=== PATIENT | female | born 1975 | race Caucasian/White ===

== ENCOUNTER 2020-10-06 17:53 | Inpatient (IN) | payer OTHER, SELFPAY ==
[2020-10-06] MEDS ORDERED: Ondansetron PF 4 MG/2 ML Vial ONE ×2 (19:02→21:42)
[2020-10-06] MEDS ORDERED: Morphine 4 MG/ML VIAL ONE ×2 (19:02→21:00)
[2020-10-06] MEDS ORDERED: Bupivacaine PF 0.5% 30 ML VIAL ONE (20:43)
[2020-10-06] MEDS ORDERED: Betamet Acet/Betamet Na Ph 30 MG/5 ML VIAL ONE (20:43)
[2020-10-06] MEDS ORDERED: Bacitracin Zinc Ointment 30 gm TUBE ONE (20:43)
[2020-10-06] MEDS ORDERED: Lidocaine 2% PF 5 ML VIAL ONE ×2 (20:43→20:45)
[2020-10-06] MEDS ORDERED: Hetastarch 6% 500 ML 0 ML ONE ×2 (20:43→20:45)
[2020-10-06] MEDS ORDERED: Heparin 25,000 units/D5W 0 ML ONE (20:46)
[2020-10-06] MEDS ORDERED: Sodium Chloride 0.9% 10 ML ONE (20:50)
[2020-10-06] MEDS ORDERED: Fentanyl 250 MCG/5 ML VIAL ONE (21:39)
[2020-10-06] MEDS ORDERED: Succinylcholine 200 MG/10 ml SYRINGE FS ONE (21:42)
[2020-10-06] MEDS ORDERED: Dexamethasone 20 MG/5 ML VIAL ONE (21:42)
[2020-10-06] MEDS ORDERED: PROPOFOL 200 MG/20 ML VIAL ONE (21:42)
[2020-10-06] MEDS ORDERED: Rocuronium Bromide 10 MG/ML (10ML VIAL) ONE (21:42)
[2020-10-06] MEDS ORDERED: Lidocaine 1% PF 5 ML VIAL ONE (21:42)
[2020-10-06] MEDS ORDERED: SUGAMMADEX SODIUM 500 MG/5 ML VIAL ONE (22:03)
[2020-10-06] MEDS ORDERED: Promethazine HCl 25 MG/ML VIAL IM PRN ×2 (23:27→23:31)
[2020-10-06] MEDS ORDERED: Promethazine HCl 25 MG/ML VIAL SLOW IVP PRN (23:27)
[2020-10-06] MEDS ORDERED: Ondansetron HCl/PF 4 MG/2 ML Vial IVP PRN (23:27)
[2020-10-06] MEDS ORDERED: Ketorolac Tromethamine 30 MG/ML VIAL IVP PRN ×2 (23:27→23:37)
[2020-10-06] MEDS ORDERED: Morphine Sulfate 2 MG/ML SYRINGE SLOW IVP PRN (23:27)
[2020-10-06] MEDS ORDERED: Fentanyl 100 MCG/2 ML VIAL ONE ×2 (23:30→23:46)
[2020-10-06] MEDS ORDERED: Ondansetron PF 4 MG/2 ML Vial SLOW IVP PRN (23:31)
[2020-10-06] MEDS ORDERED: Bisacodyl 10 MG SUPP PR PRN (23:31)
[2020-10-06] MEDS ORDERED: Fentanyl 100 MCG/2 ML VIAL SLOW IVP PRN (23:31)
[2020-10-06] MEDS ORDERED: HYDROcodone/Acetaminophen 5/325 mg Tablet PO PRN (23:31)
[2020-10-06] MEDS ORDERED: traMADol HCl 50 MG TAB PO PRN (23:31)
[2020-10-06] MEDS ORDERED: Meperidine HCl/PF 25 MG/ML VIAL IM PRN (23:37)
[2020-10-06] MEDS ORDERED: Communication Order-Pharmacy FS SCH (23:45)
[2020-10-07] MEDS ORDERED: Fentanyl 100 MCG/2 ML VIAL ONE (00:04)
[2020-10-07] MEDS ORDERED: Ketorolac Tromethamine 30 MG/ML VIAL ONE (00:04)
[2020-10-07] MEDS: Ketorolac Tromethamine 30 MG/ML VIAL IVP SCH ×4 (00:58→18:16)
[2020-10-07] MEDS: Sodium Chloride 0.9% 1,000 ML IV SCH ×3 (00:58→18:49)
[2020-10-07 01:03] VITALS: BMI 21.6
[2020-10-07] MEDS: Morphine 4 MG/ML VIAL SLOW IVP PRN ×5 (02:04→20:35)
[2020-10-07] MEDS: Vancomycin 1 GM in Premix Bag 1 BAG IVPB SCH ×2 (02:08→15:58)
[2020-10-07 03:49] LABS: #Lymphocytes 0.6 thou/uL (1.20-3.40); #Monocytes 0.1 thou/uL (0.11-0.59); %Lymphocytes 6.3 % (21.0-51.0); %Monocytes 0.9 % (0.0-10.0); %Neutrophils 92.7 % (42.0-75.0); Hemoglobin 12.2 g/dL (12.0-16.0); Mean Corpuscular HGB CONC 33.7 g/dL (32.0-36.0); Mean Corpuscular Hemoglobin 30.3 pg (27.0-31.0); Mean Corpuscular Volume 89.8 fL (78.0-98.0); Mean Platelet Volume 7.2 fL (7.4-10.4); Platelet Count 204 thou/uL (130-400); RBC Distribution Width 12.2 % (11.5-14.5); Red Blood Cell (RBC) Count 4.05 mill/uL (4.20-5.40); White Blood Cell (WBC) Count 9.7 thou/uL (4.8-10.8)
[2020-10-07] MEDS: Aspirin 81 mg Enteric Coated Tablet PO SCH ×2 (08:30→20:28)
[2020-10-07] MEDS ORDERED: TETANUS AND DIPHTHERIA TOX/PF 0.5 ML DISP.SYRIN IM SCH (09:00)
[2020-10-07] MEDS ORDERED: clonazePAM 0.5 MG TAB PO SCH (11:00)
[2020-10-07] MEDS ORDERED: busPIRone HCl 10 MG TAB PO SCH (11:00)
[2020-10-07] MEDS: clonazePAM 0.5 MG TAB PO SCH (20:28)
[2020-10-07] MEDS: busPIRone HCl 10 MG TAB PO SCH (20:29)
[2020-10-08] MEDS: Ketorolac Tromethamine 30 MG/ML VIAL IVP SCH (00:27)
[2020-10-08] MEDS: Sodium Chloride 0.9% 1,000 ML IV SCH ×2 (02:36→14:49)
[2020-10-08] MEDS: Morphine 4 MG/ML VIAL SLOW IVP PRN ×3 (02:37→14:35)
[2020-10-08] MEDS: Vancomycin 1 GM in Premix Bag 1 BAG IVPB SCH ×2 (02:39→16:03)
[2020-10-08 03:51] LABS: #Lymphocytes 1.7 thou/uL (1.20-3.40); #Monocytes 0.7 thou/uL (0.11-0.59); #Neutrophils 9.4 thou/uL (1.40-6.50); %Basophils 0.1 % (0.0-1.0); %Lymphocytes 14.1 % (21.0-51.0); %Monocytes 5.6 % (0.0-10.0); %Neutrophils 80.1 % (42.0-75.0); Hemoglobin 10.3 g/dL (12.0-16.0); Mean Corpuscular HGB CONC 35.1 g/dL (32.0-36.0); Mean Corpuscular Hemoglobin 31.8 pg (27.0-31.0); Mean Corpuscular Volume 90.7 fL (78.0-98.0); Mean Platelet Volume 7.4 fL (7.4-10.4); Platelet Count 186 thou/uL (130-400); RBC Distribution Width 12.3 % (11.5-14.5); Red Blood Cell (RBC) Count 3.24 mill/uL (4.20-5.40); White Blood Cell (WBC) Count 11.7 thou/uL (4.8-10.8)
[2020-10-08] MEDS: clonazePAM 0.5 MG TAB PO SCH ×2 (09:17→21:43)
[2020-10-08] MEDS: busPIRone HCl 10 MG TAB PO SCH ×2 (09:18→21:44)
[2020-10-08] MEDS: Aspirin 81 mg Enteric Coated Tablet PO SCH ×2 (09:18→21:44)
[2020-10-08 15:07] LABS: Vancomycin, Trough 6.2 ug/mL
[2020-10-08 15:24] VITALS: TEMP 98.3
[2020-10-08] MEDS ORDERED: VANCOMYCIN 1.75 GM/350 ML BAG 1.75 GM in Premix Bag 1 BAG IVPB SCH (16:00)
[2020-10-08] MEDS ORDERED: Midazolam HCl 2 mg/2 ml Vial ONE (17:07)
[2020-10-08] MEDS ORDERED: Fentanyl 100 MCG/2 ML VIAL ONE ×2 (17:07→20:46)
[2020-10-08] MEDS ORDERED: Bupivacaine PF 0.5% 30 ML VIAL ONE (17:19)
[2020-10-08] MEDS ORDERED: Sodium Chloride 0.9% 30 ML ONE (17:19)
[2020-10-08] MEDS ORDERED: Bacitracin Zinc Ointment 30 gm TUBE ONE (17:19)
[2020-10-08] MEDS ORDERED: Ondansetron PF 4 MG/2 ML Vial ONE (18:43)
[2020-10-08] MEDS ORDERED: Lidocaine 1% PF 5 ML VIAL ONE (18:43)
[2020-10-08] MEDS ORDERED: PROPOFOL 200 MG/20 ML VIAL ONE (18:43)
[2020-10-08] MEDS ORDERED: Dexamethasone 20 MG/5 ML VIAL ONE (18:43)
[2020-10-08] MEDS ORDERED: Promethazine HCl 25 MG/ML VIAL SLOW IVP PRN (20:30)
[2020-10-08] MEDS ORDERED: Promethazine HCl 25 MG/ML VIAL IM PRN (20:30)
[2020-10-08] MEDS ORDERED: Ondansetron HCl/PF 4 MG/2 ML Vial IVP PRN (20:30)
[2020-10-08] MEDS ORDERED: Ketorolac Tromethamine 30 MG/ML VIAL ONE (21:01)
[2020-10-08 21:30] VITALS: BP 110/63
== END 2020-10-08 22:21 | disposition home or self-care (01) | DRG 572 ==
LOC: ERS 17:53 → SDC/OP 21:57 → IMCU/EMU 23:00 → SURG A 10-08 15:48
PROVIDERS: ADMIT Orthopaedic Surgery Hand Surgery; ATTEND Orthopaedic Surgery Hand Surgery
PROC: 0JBH0ZZ Excision of Left Lower Arm Subcutaneous Tissue and Fascia, Open Approach (ICD-10-PCS; principal; 2020-10-06)
PROC: 01Q40ZZ Repair Ulnar Nerve, Open Approach (ICD-10-PCS; 2020-10-06)
PROC: 0XJ Anatomical Regions, Upper Extremities, Inspection (ICD-10-PCS; 2020-10-06)
PROC: 0JBH0ZZ Excision of Left Lower Arm Subcutaneous Tissue and Fascia, Open Approach (ICD-10-PCS; 2020-10-08)
DX: S51.812A Laceration without foreign body of left forearm, initial encounter (principal); S44.02XA Injury of ulnar nerve at upper arm level, left arm, initial encounter; F32.9 Major depressive disorder, single episode, unspecified; F41.9 Anxiety disorder, unspecified; W31.9XXA Contact with unspecified machinery, initial encounter; Z85.820 Personal history of malignant melanoma of skin; Z79.899 Other long term (current) drug therapy
CPT/HCPCS: 36415; 80202; 85025; 96374; 96375; 96376; G0390; J0702; J1100; J1644; J1885; J2001; J2250; J2270; J2405; J2704; J3010; J3370; J3490; S0020

== ENCOUNTER 2020-10-09 14:54 | Emergency (ER) | payer SELFPAY ==
[2020-10-09] MEDS ORDERED: Ketorolac Tromethamine 30 MG/ML VIAL ONE (16:13)
[2020-10-09] MEDS ORDERED: Bacitracin Zinc Ointment 30 gm TUBE ONE (16:17)
[2020-10-09] MEDS ORDERED: Thrombin 5000 UNITS/5 ML VIAL ONE (16:17)
[2020-10-09] MEDS ORDERED: Bupivacaine PF 0.5% 30 ML VIAL ONE (16:17)
[2020-10-09] MEDS ORDERED: Sodium Chloride 0.9% 0 ML ONE (16:17)
== END 2020-10-09 16:30 | disposition home or self-care (01) ==
LOC: ERS 14:54
DX: G89.18 Other acute postprocedural pain (principal); M79.2 Neuralgia and neuritis, unspecified
CPT/HCPCS: 96372; 99283; J1885; J3490; S0020

== ENCOUNTER 2023-02-26 11:24 | Emergency (ER) | payer OTHER ==
[~2023-02-26 11:24] MED LIST: Iopamidol-370 76% 500 ML MDV (1 ML CHARGE) ONE
[2023-02-26] MEDS ORDERED: Morphine 4 MG/ML VIAL ONE (11:54)
[2023-02-26] MEDS ORDERED: Morphine 2 MG/ML VIAL ONE (13:02)
[2023-02-26] MEDS ORDERED: fentaNYL 50 mcg/mL 1 mL Vial ONE (14:07)
[2023-02-26] MEDS ORDERED: Cyclobenzaprine 10 MG TAB ONE (14:24)
[2023-02-26] MEDS ORDERED: Ketorolac Tromethamine 30 MG/ML VIAL ONE (15:33)
== END 2023-02-26 15:50 | disposition home or self-care (01) ==
LOC: ERS 11:24
DX: S22.029A Unspecified fracture of second thoracic vertebra, initial encounter for closed fracture (principal); V80.010A Animal-rider injured by fall from or being thrown from horse in noncollision accident, initial encounter
CPT/HCPCS: 70450; 71260; 72125; 74177; 96372; 96374; 96375; 96376; J1885; J2270; J2272; J3010; Q9967

== ENCOUNTER 2023-03-13 11:24 | Outpatient (CLI) | payer OTHER | END 2023-03-13 11:25 | disposition home or self-care (01) | LOC: SCSRAD 11:24 | PROVIDERS: ATTEND Physician Assistant | DX: S22.009D Unspecified fracture of unspecified thoracic vertebra, subsequent encounter for fracture with routine healing (principal); M47.814 Spondylosis without myelopathy or radiculopathy, thoracic region | CPT/HCPCS: 72072 ==

== ENCOUNTER 2023-08-15 22:57 | Emergency (ER) | payer OTHER ==
[2023-08-15] MEDS ORDERED: Morphine 4 MG/ML VIAL ONE (23:31)
[2023-08-15] MEDS ORDERED: Ondansetron PF 4 MG/2 ML Vial ONE (23:31)
[2023-08-15] MEDS ORDERED: Promethazine HCl 25 MG in Sodium Chloride 0.9% 50 ML IVPB SCH (23:45)
[2023-08-15 23:57] LABS: #Eosinphils 0.1 thou/uL (0.0-0.7); #Monocytes 0.5 thou/uL (0.11-0.59); #Neutrophils 3.7 thou/uL (1.40-6.50); %Basophils 0.5 % (0.0-1.0); %Lymphocytes 33.9 % (21.0-51.0); %Monocytes 7.2 % (0.0-10.0); %Neutrophils 56.2 % (42.0-75.0); Hematocrit 40.7 % (36.0-47.0); Hemoglobin 14.1 g/dL (12.0-16.0); Mean Corpuscular HGB CONC 34.6 g/dL (32.0-36.0); Mean Corpuscular Hemoglobin 29.8 pg (27.0-31.0); Mean Platelet Volume 9.4 fL (7.4-10.4); Platelet Count 216 10x3/uL (130-400); RBC Distribution Width 12.2 % (11.5-14.5); Red Blood Cell (RBC) Count 4.73 mill/uL (4.20-5.40); White Blood Cell (WBC) Count 6.6 10x3/uL (4.8-10.8)
[2023-08-16] MEDS ORDERED: Ketorolac Tromethamine 30 MG (1 mL) VIAL ONE (00:17)
[2023-08-16 00:29] LABS: ALT (SGPT) 13 U/L (8-55); AST (SGOT) 20 U/L (5-34); Albumin 4.3 g/dL (3.5-5.0); Alcohol Less than 10.0 mg/dL (Less than 10); Alkaline Phosphatase 56 U/L (40-110); Anion Gap 17 mmol/L (10-20); BUN (Urea Nitrogen) 12 mg/dL (7.0-18.7); Bilirubin, Total 1.1 mg/dL (0.2-1.2); Calc. Creatinine Clearance 0 mL/min (70-130); Calcium 9.4 mg/dL (7.8-10.44); Carbon Dioxide 23 mmol/L (22-29); Chloride 105 mmol/L (98-107); Estimated GFR 100; Globulin 2.9 g/dL (2.4-3.5); Glucose 74 mg/dL (70-105); Protein, Total 7.2 g/dL (6.0-8.3); Sodium 141 mmol/L (136-145)
[2023-08-16] MEDS ORDERED: Morphine 4 MG/ML VIAL ONE (01:15)
[2023-08-16] MEDS ORDERED: Ondansetron PF 4 MG/2 ML Vial ONE (01:15)
== END 2023-08-16 02:11 | disposition home or self-care (01) ==
LOC: ERS 22:57
DX: S06.0X0A Concussion without loss of consciousness, initial encounter (principal); W55.12XA Struck by horse, initial encounter
CPT/HCPCS: 70450; 70486; 71045; 72125; 72170; 80053; 80307; 85025; 86850; 86900; 86901; 93005; 96365; 96375; 96376; J1885; J2270; J2405; J2550